=== PATIENT | male | born 1975 | race Caucasian/White ===

== ENCOUNTER 2017-08-29 20:06 | Emergency (ER) | payer SELFPAY ==
--- NOTE | 2017-08-29 20:09 | ER Report ---
History and Physical Time Seen By MD: 20:08 HPI/ROS CHIEF COMPLAINT: Left upper quadrant abdominal pain HISTORY OF PRESENT ILLNESS: Patient is a 42-year-old male here with complaints of left upper quadrant abdominal pain since dinnertime approximately 1700 this evening after eating soup and taking Prilosec. Patient takes 20 mg of Prilosec daily usually in the evenings. He also reports that he has a history of H. pylori and the prior appendectomy but denies further medical history or medications. Patient is afebrile at time of evaluation complaining of continued pain. Patient denies prior history of endoscopy or gastroenterology evaluation for this problem. Patient denies headache, blurred vision, chest pain, flank pain, dysuria, hematuria. He does report that the pain is at times intense that he becomes short of breath however is not short of breath at baseline. REVIEW OF SYSTEMS: Constitutional: No fever, no chills. Eyes: No discharge. ENT: No sore throat. Cardiovascular: No chest pain, no palpitations. Respiratory: No cough, no shortness of breath. Gastrointestinal: + LUQ abdominal pain, + nausea, no vomiting. Genitourinary: No hematuria. Musculoskeletal: No back pain. Skin: No rashes. Neurological: No headache. Allergies: Coded Allergies: No Known Drug Allergies (Unverified , 08/29/17) Home Meds Active Scripts Sucralfate (CARAFATE) 1 Gm Tablet, 1 GM PO QID for 5 Days, #20 TAB Prov:BERNADINE MCDERMOTT DO 08/29/17 Ondansetron (ZOFRAN ODT) 4 Mg Tab.rapdis, 4 MG PO Q12H for 5 Days, #10 TAB.NINOSKA Prov:BERNADINE MCDERMOTT DO 08/29/17 Pantoprazole Sodium (PANTOPRAZOLE SODIUM) 40 Mg Tablet.dr, 40 MG PO QDAY for 30 Days, #30 TAB.SR Prov:BERNADINE MCDERMOTT DO 08/29/17 Reported Medications Omeprazole Magnesium (PRILOSEC OTC) 20 Mg Tablet.dr, 1 TAB PO QDAY, TAB 08/29/17 Constitutional Vital Sign - Last 24 Hours 08/29/17 08/29/17 08/29/17 08/29/17 20:09 20:10 20:21 20:30 Temp 98.2 Pulse 54 60 Resp 16 B/P (MAP) 137/89 (105) 137/89 121/77 (92) Pulse Ox 95 96 O2 Delivery Room Air 08/29/17 08/29/17 08/29/17 08/29/17 20:36 20:41 20:56 21:00 Pulse 55 61 58 B/P (MAP) 117/77 (90) Pulse Ox 95 95 93 08/29/17 08/29/17 08/29/17 08/29/17 21:11 21:16 21:21 21:30 Pulse 56 54 54 B/P (MAP) 116/74 (88) Pulse Ox 93 93 92 08/29/17 08/29/17 21:36 21:41 Pulse 56 50 Pulse Ox 94 93 Physical Exam General Appearance: The patient is alert, has no immediate need for airway protection and no signs of toxicity. No acute distress Eyes: Pupils equal and round no pallor or injection. ENT, Mouth: Mucous membranes are moist. Respiratory: There are no retractions, lungs are clear to auscultation. Cardiovascular: Regular rate and rhythm. Gastrointestinal: Abdomen is soft and + mildly tender in the LUQ, no masses, bowel sounds normal. Neurological: No focal neurological deficits Skin: Warm and dry, no rashes. Musculoskeletal: Neck is supple non tender. Extremities are nontender, nonswollen and have full range of motion. DIFFERENTIAL DIAGNOSIS: After history and physical exam differential diagnosis was considered for abdominal pain including but not limited to appendicitis, cholecystitis, gastritis and urinary tract infection. Medical Decision Making Data Points Result Diagram: 08/29/17204208/29/172042 Laboratory Hematology Test 08/29/17 20:43 Red Blood Count 5.04 M/uL (4.00-5.60) Mean Corpuscular Volume 87.6 fL (80.0-96.0) Mean Corpuscular Hemoglobin 30.5 pg (26.0-33.0) Mean Corpuscular Hemoglobin Concent 34.8 g/dL (32.0-36.0) Red Cell Distribution Width 13.8 % (11.5-14.5) Mean Platelet Volume 9.8 fL (7.2-11.1) Neutrophils (%) (Auto) 63.9 % (39.4-72.5) Lymphocytes (%) (Auto) 27.8 % (17.6-49.6) Monocytes (%) (Auto) 6.4 % (4.1-12.4) Eosinophils (%) (Auto) 1.3 % (0.4-6.7) Basophils (%) (Auto) 0.6 % (0.3-1.4) Nucleated RBC Relative Count (auto) 0.0 /100WBC Neutrophils # (Auto) 5.5 K/uL (2.0-7.4) Lymphocytes # (Auto) 2.4 K/uL (1.3-3.6) Monocytes # (Auto) 0.6 K/uL (0.3-1.0) Eosinophils # (Auto) 0.1 K/uL (0.0-0.5) Basophils # (Auto) 0.1 K/uL (0.0-0.1) Nucleated RBC Absolute Count (auto) 0.00 K/uL Sodium Level 142 mmol/L (137-145) Potassium Level 3.8 mmol/L (3.5-5.0) Chloride Level 103 mmol/L (98-107) Carbon Dioxide Level 27 mmol/L (22-30) Blood Urea Nitrogen 11 mg/dl (9-21) Creatinine 1.10 mg/dl (0.66-1.25) Glomerular Filtration Rate Calc > 60.0 Random Glucose 95 mg/dl (75-110) Calcium Level 9.1 mg/dl (8.4-10.2) Total Bilirubin 1.0 mg/dl (0.2-1.3) Aspartate Amino Transf (AST/SGOT) 24 U/L (0-35) Alanine Aminotransferase (ALT/SGPT) 33 U/L (0-56) Alkaline Phosphatase 96 U/L (0-126) Total Protein 7.1 g/dl (6.3-8.2) Albumin 4.1 g/dl (3.5-5.0) Lipase 37 U/L (23-300) Chemistry Test 08/29/17 20:43 White Blood Count 8.7 k/uL (4.5-11.0) Red Blood Count 5.04 M/uL (4.00-5.60) Hemoglobin 15.4 g/dL (14.0-18.0) Hematocrit 44.1 % (42.0-52.0) Mean Corpuscular Volume 87.6 fL (80.0-96.0) Mean Corpuscular Hemoglobin 30.5 pg (26.0-33.0) Mean Corpuscular Hemoglobin Concent 34.8 g/dL (32.0-36.0) Red Cell Distribution Width 13.8 % (11.5-14.5) Platelet Count 159 K/uL (150-450) Mean Platelet Volume 9.8 fL (7.2-11.1) Neutrophils (%) (Auto) 63.9 % (39.4-72.5) Lymphocytes (%) (Auto) 27.8 % (17.6-49.6) Monocytes (%) (Auto) 6.4 % (4.1-12.4) Eosinophils (%) (Auto) 1.3 % (0.4-6.7) Basophils (%) (Auto) 0.6 % (0.3-1.4) Nucleated RBC Relative Count (auto) 0.0 /100WBC Neutrophils # (Auto) 5.5 K/uL (2.0-7.4) Lymphocytes # (Auto) 2.4 K/uL (1.3-3.6) Monocytes # (Auto) 0.6 K/uL (0.3-1.0) Eosinophils # (Auto) 0.1 K/uL (0.0-0.5) Basophils # (Auto) 0.1 K/uL (0.0-0.1) Nucleated RBC Absolute Count (auto) 0.00 K/uL Glomerular Filtration Rate Calc > 60.0 Calcium Level 9.1 mg/dl (8.4-10.2) Total Bilirubin 1.0 mg/dl (0.2-1.3) Aspartate Amino Transf (AST/SGOT) 24 U/L (0-35) Alanine Aminotransferase (ALT/SGPT) 33 U/L (0-56) Alkaline Phosphatase 96 U/L (0-126) Total Protein 7.1 g/dl (6.3-8.2) Albumin 4.1 g/dl (3.5-5.0) Lipase 37 U/L (23-300) ED Course/Re-evaluation ED Course Patient is a 42-year-old male here with complaints of left upper quadrant abdominal pain since [place] 1700 this evening after eating dinner (soup). Patient reports prior episodes which are similar to this and he also notes that he takes Prilosec in the evenings for GERD. He reports that he otherwise is healthy and takes no medications and had a prior appendectomy. He describes the pain as burning without radiation located in the left upper quadrant. He reports that he was previously treated for H. pylori. Denies being seen by gastroenterology. Patient was ordered a GI cocktail, Zofran and fluids. Patient refused x-ray imaging and medications. Labs were unremarkable. I updated the patient regarding his findings. I recommended that the patient be seen by gastroenterology. I gave him scripts for pantoprazole and Carafate and Zofran. Patient was stable at time of discharge. Decision to Disposition Date: Aug 29, 2017 Decision to Disposition Time: 21:38 Depart Departure Latest Vital Signs Vital Signs Date Time Temp Pulse Resp B/P (MAP) Pulse Ox O2 Delivery O2 Flow Rate FiO2 08/29/17 21:41 50 93 08/29/17 21:30 116/74 (88) 08/29/17 20:10 98.2 16 Room Air Impression: Primary Impression: Abdominal pain Condition: Condition Unchanged Disposition: HOME OR SELF-CARE Referrals: ISSAC ASHLEY MD New Scripts Sucralfate (CARAFATE) 1 Gm Tablet 1 GM PO QID for 5 Days, #20 TAB Prov: BERNADINE MCDERMOTT DO 08/29/17 Ondansetron (ZOFRAN ODT) 4 Mg Tab.rapdis 4 MG PO Q12H for 5 Days, #10 TAB.NINOSKA Prov: BERNADINE MCDERMOTT DO 08/29/17 Pantoprazole Sodium (PANTOPRAZOLE SODIUM) 40 Mg Tablet.dr 40 MG PO QDAY for 30 Days, #30 TAB.SR Prov: BERNADINE MCDERMOTT DO 08/29/17 Patient Instructions: Ondansetron (By mouth, Into the mouth), Pantoprazole (By mouth), Sucralfate (By mouth) Additional Instructions: Please take pantoprazole (protonix) one tablet daily (40 mg) for acid reflux symptoms. Please discontinue use of your omeprazole or Prilosec. Please take one tablet of Carafate 4 times a day for acid reflux symptoms. You may take 1 tablet of Zofran every 6-8 hours as needed for nausea. Please follow up with gastroenterology for consideration of endoscopy to further workup your condition. Please return promptly if you develop worsening pain, nausea, vomiting, fevers, chills, chest pain, abdominal pain, shortness of breath. Problem Qualifiers Primary Impression: Abdominal pain Abdominal location: left upper quadrant Qualified Codes: R10.12 - Left upper quadrant pain BERNADINE MCDERMOTT DO Aug 29, 2017 20:09
[2017-08-29] MEDS ORDERED: OMEP-218 PO (20:14)
[2017-08-29] MEDS ORDERED: NS(*) 0.9% 1000 ML BAG 1,000 ML IV ONE (20:30)
[2017-08-29] MEDS ORDERED: KETOROLAC 30 MG/ML VIAL IM ONE (20:30)
[2017-08-29] MEDS ORDERED: ONDANSETRON 4 MG/2 ML VIAL IVP ONE (20:30)
[2017-08-29] MEDS ORDERED: ATRO/SCOPOL/HYOSCY/PB 5 ML ELX PO ONE (20:40)
[2017-08-29] MEDS ORDERED: MAG HYD/AL HYD/SIMETH 30ML UDC PO ONE (20:40)
[2017-08-29] MEDS ORDERED: LIDOCAINE 2% VISC SLN 15ML UDC PO ONE (20:40)
[2017-08-29 20:56] LABS: PLATELET COUNT, AUTOMATED 159 K/uL (150-450)
[2017-08-29 21:30] VITALS: BP 116/74
[2017-08-29] MEDS ORDERED: ONDA4TAB PO (21:40)
[2017-08-29] MEDS ORDERED: SUCR1TAB85 PO (21:40)
[2017-08-29] MEDS ORDERED: PANT40TA65 PO (21:40)
--- NOTE | 2017-08-29 23:31 | EKG ---
FACILITY: [facility] PATIENT NAME: FEDE MARTIN : [id number] MR: [id number] V: [id number] EXAM DATE: ORDERING PHYSICIAN: BERNADINE MCDERMOTT TECHNOLOGIST: MARTIN Test Reason : ABD. PAIN Blood Pressure : / mmHG Vent. Rate : 058 BPM Atrial Rate : 058 BPM P-R Int : 142 ms QRS Dur : 086 ms QT Int : 454 ms P-R-T Axes : 053 010 021 degrees QTc Int : 445 ms Sinus bradycardia Otherwise normal ECG No previous ECGs available Confirmed by SYEDA HONEYCUTT ([id number]) on 08/30/2017 6:42:07 AM Referred By: Confirmed By:SYEDA HONEYCUTT
== END 2017-08-29 22:03 | disposition home or self-care (01) ==
LOC: ER 20:33
DX: R10.12 Left upper quadrant pain (principal)
CPT/HCPCS: 82040; 82247; 82310; 82374; 82435; 82565; 82947; 83690; 84075; 84132; 84155; 84295; 84450; 84460; 84520; 85025; 93005; 99283